=== PATIENT | male | born 1960 | race African-American/Black ===

== ENCOUNTER 2017-02-20 07:32 | Emergency (ER) | payer OTHER, MEDICAID ==
[~2017-02-20] VITALS: Ht 167.6 cm; Wt 65.0 kg
[~2017-02-20 07:32] MED LIST: HYDR-3534 PO; ROPI.25
[2017-02-20 07:34] VITALS: BP 148/75; PULSE 78; RESP 15; TEMP 98.2; O2SAT 99
[2017-02-20] MEDS ORDERED: CHLO.12%30 SWISH-SPIT (08:40)
[2017-02-20] MEDS ORDERED: PENI500T PO (08:40)
[2017-02-20] MEDS ORDERED: HYDR-3533 PO (08:40)
--- NOTE | 2017-02-20 08:40 | PD ---
HPI Chief Complaint: Oral / Dental Pain or Problem Time Seen by Provider: 08:08 Travel History International Travel<30 days: No Contact w/Intl Traveler<30days: No Traveled to known affect area: No History of Present Illness HPI 56-year-old male complains of right lower dentalgia for about 2 months. It gradually worsening. It is painful with palpation. There is a constant throbbing pain. He notes things are gradually worsened since he fractured the right lower molar. He's had no fever. Mastication is painful and oral intake is decreased. PFSH Past Medical History Arthritis: No Asthma: No Autoimmune Disease: No Blood Disorders: No Anxiety: No Depression: No Heart Rhythm Problems: No Cancer: No Cardiac Catheterization: No Cardiovascular Problems: No High Cholesterol: No Chemotherapy: No Chest Pain: Yes Congestive Heart Failure: No COPD: No Cerebrovascular Accident: No Diabetes: No Diminished Hearing: No Endocrine: No Gastrointestinal Disorders: Yes GERD: No Glaucoma: No Genitourinary: No Headaches: Yes Hepatitis: No Hiatal Hernia: No Hypertension: No Immune Disorder: No Implanted Vascular Access Dvce: No Kidney Stones: No Musculoskeletal: Yes (CHRONIC BACK PAIN) Neurologic: No Psychiatric: No Reproductive: Yes (SPERM COUNT LOW) Respiratory: No Immunizations Current: Yes Migraines: Yes Myocardial Infarction: No Pancreatitis: Yes Radiation Therapy: No Renal Failure: No Seizures: No Sleep Apnea: No Thyroid Disease: No Ulcer: Yes (PEPTIC) Past Surgical History Abdominal Surgery: No AICD: No Appendectomy: No Arteriovenous Shunt: No Body Medical Devices: DENTAL INFECTIONS Cardiac Surgery: No Cholecystectomy: No Coronary Artery Bypass Graft: No Ear Surgery: No Endocrine Surgery: No Eye Surgery: No Genitourinary Surgery: No Gynecologic Surgery: No Insulin Pump: No Joint Replacement: No Neurologic Surgery: No Oral Surgery: No Pacemaker: No Thoracic Surgery: No Other Surgery: No Social History Alcohol Use: No Tobacco Use: No Substance Use: No Allergies-Medications (Allergen,Severity, Reaction): Coded Allergies: Aspirin (Verified Adverse Reaction, Severe, Ulcers, 06/16/16) Reported Meds & Prescriptions Reported Meds & Active Scripts Active Reported Requip (Ropinirole HCl) 0.25 Mg Tab 0 .ROUTE Lortab 7.5 mg/325 mg (Hydrocodone/Acetaminophen 7.5 mg/325 mg) 1 Tab 1 Tab PO Q4H PRN Review of Systems General / Constitutional: No: Fever, Chills HENT: Positive: Dental Difficulties Physical Exam Narrative GENERAL: 56-year-old male well-nourished well-developed no acute distress SKIN: Focused skin assessment warm/dry. HEAD: Atraumatic. Normocephalic. EYES: Pupils equal and round. No scleral icterus. No injection or drainage. ENT: No nasal bleeding or discharge. Mucous membranes pink and moist. Poor dentition generally. The right lower second molars fractured and there is tenderness to palpation without abscess or evidence of deep tissue infection. NECK: Trachea midline. No JVD. Data Data Last Documented VS Vital Signs Date Time Temp Pulse Resp B/P Pulse Ox O2 Delivery O2 Flow Rate FiO2 02/20/17 07:34 98.2 78 15 148/75 99 VS reviewed MDM Medical Decision Making Medical Screen Exam Complete: Yes Emergency Medical Condition: Yes Medical Record Reviewed: Yes Differential Diagnosis Pulpitis, ANUG, Josse's Angina, Apical Abscess Narrative Course You have a choice when it comes to health care, and we are glad that you chose [facility]. Hopefully, we have met your expectations on today's visit. You are welcome to return to [facility] at any time, as we are committed to meeting the health care needs of our community. Oral hygiene recommendations discussed. Referrals: Dentist 1 day Additional Instructions: You have a choice when it comes to health care, and we are glad that you chose [facility]. Hopefully, we have met your expectations on today's visit. You are welcome to return to [facility] at any time, as we are committed to meeting the health care needs of our community. Med/Other Pt SpecificInfo: Prescription(s) given Scripts Chlorhexidine Gluconate (Mouth) Liq 0.12% Soln15 Ml SWISH-SPIT BID 3 Days Ref 0 Prov:Harry Mcginnis MD 02/20/17 Hydrocodone-Acetaminophen (Lortab)5-325 Mg Tab1-2 Tab PO Q6H PRN (PAIN SCALE 6 TO 10) #12 TAB Ref 0 Prov:Harry Mcginnis MD 02/20/17 Penicillin V Potassium 500 Mg [id number] Mg PO Q8H 7 Days Ref 0 Prov:Harry Mcginnis MD 02/20/17 Disposition: 01 DISCHARGE HOME Condition: Stable Harry Mcginnis MD Feb 20, 2017 08:40
[2017-02-20] MEDS ORDERED: ACETAMINOPHEN/HYDROcodone 325 MG/5 MG TAB PO ONE (08:45)
== END 2017-02-20 08:51 | disposition home or self-care (01) ==
LOC: NEPE 07:32
DX: K08.89 Other specified disorders of teeth and supporting structures (principal)
CPT/HCPCS: 99284